=== PATIENT | female | born 1980 | race Caucasian/White ===

== ENCOUNTER → 2016-06-12 | Outpatient (CLI) | payer BC ==
[~2016-06-12] MED LIST: COLA100C PO; IBUP200C PO; IBUP60TA PO; PERCOCET PO
--- NOTE | 2016-06-12 16:26 | REP ---
Obstetric sonography: History: Supervision of for anatomy. Findings: Scanning through the gravid uterus demonstrates a viable single intrauterine gestation in a variable lie. motion is observed and heart rate is recorded at 153 beats per minute. A posterior placenta is seen grade zero without evidence of previa. Amniotic fluid is subjectively normal. Closed cervical length is 4.1 cm. No extrauterine abnormality observed. No anomaly is seen grade the following anatomic structures are identified and felt to be unremarkable: cranium, choroid plexus, cavum, cerebellum posterior fossa, face and profile, lungs, four-chamber heart with left and right ventricular outflow tract views, diaphragm, left-sided stomach, abdominal wall cord insertion, three-vessel umbilical cord, kidneys and bladder, spine, upper and lower extremities. BPD 5.0 cm = 21 weeks 0 days Head circumference 18.3 cm = 20 weeks 5 days Abdominal circumference 16.3 cm = 21 weeks 2 days Femur length 3.5 cm = 21 weeks 0 days Humeral length 3.4 cm = 21 weeks 3 days Cerebellar diameter 2.0 cm = 19 weeks 4 days HC/AC ratio normal 1.13, cephalic index normal 0.75, estimated weight 401 grams 0 pounds 14 ounces 72nd percentile for 20 weeks 3 days. Impression: Viable single intrauterine gestation at 20 weeks 5 days by today's composite criteria. ALICIA by today's sonography 10/25/2016. No anomaly is seen. Signed by Jose Ríos MD 06/12/2016 04:51 P
== END ==
LOC: M SMT 14:55
PROVIDERS: ATTEND Advanced Practice Midwife
DX: O34.211 Maternal care for low transverse scar from previous cesarean delivery (principal)

== ENCOUNTER → 2016-07-25 | Outpatient (CLI) | payer BC ==
[2016-07-25 17:55] LABS: MEAN CORPUSCULAR HEMOGLOBIN 30.6 pg (27.0-33.0); MEAN CORPUSCULAR HGB CONC 33.9 g/dl (32.0-36.5); MEAN CORPUSCULAR VOLUME 90.3 fl (80.0-96.0); RED CELL DISTRIBUTION WIDTH 13.9 % (11.5-14.5)
== END ==
LOC: M SMT 13:25
PROVIDERS: ATTEND Advanced Practice Midwife
DX: O34.211 Maternal care for low transverse scar from previous cesarean delivery (principal)

== ENCOUNTER → 2016-10-03 | Outpatient (REF) | payer BC ==
[~2016-10-03] MED LIST changes: -COLA100C PO; +COLA100C3 PO; +PRENTAB9 PO
== END ==
LOC: M LAB REF 16:50
PROVIDERS: ATTEND Specialist
DX: Z34.83 Encounter for supervision of other normal pregnancy, third trimester (principal)

== ENCOUNTER 2016-10-20 05:38 | Inpatient (IN) | payer BC ==
[~2016-10-20] VITALS: Ht 157.5 cm; Wt 69.0 kg
[2016-10-20] VITALS (9 sets, daily range): BP systolic 95–126; BP diastolic 51–77
[2016-10-20] MEDS ORDERED: LR 800 ML IV ONE (06:00)
[2016-10-20] MEDS ORDERED: ceFAZolin SOD 1 GM in D5W MINI-BAG PLUS 50 ML IV ONE (06:15)
[2016-10-20] MEDS ORDERED: BICITRA 30ML SOLN UDC PO ONE (06:15)
[2016-10-20] MEDS ORDERED: LR 1,000 ML IV SCH ×2 (06:15→09:15)
[2016-10-20 06:30] LABS: MEAN CORPUSCULAR HEMOGLOBIN 30.1 pg (27.0-33.0); MEAN CORPUSCULAR VOLUME 88.6 fl (80.0-96.0); RED CELL DISTRIBUTION WIDTH 14.6 % (11.5-14.5); WHITE BLOOD COUNT 8.4 K/mm3 (4.0-10.0)
[2016-10-20] MEDS ORDERED: NS 1,000 ML IV SCH (07:20)
[2016-10-20] MEDS ORDERED: METOCLOPRAMIDE INJ 10MG/2ML VIAL (J2765) IV PRN ×2 (07:39→09:15)
[2016-10-20] MEDS ORDERED: ONDANSETRON 4MG/2ML VIAL (J2405) IV PRN ×3 (07:39→09:15)
[2016-10-20] MEDS ORDERED: NALBUPHINE HCL 10 MG/ML AMP (J2300) IV PRN ×2 (07:39→09:15)
[2016-10-20] MEDS ORDERED: NALOXONE INJ 0.4 MG/1 ML VIAL (J2310) IV PRN ×2 (07:39)
[2016-10-20] MEDS ORDERED: KETOROLAC 60 MG/2 ML VIAL (J1885) As Ordered ONE (07:56)
[2016-10-20] MEDS ORDERED: OXYTOCIN INJ 10 UNITS/ML VIAL (J2590) As Ordered ONE (07:56)
[2016-10-20] MEDS ORDERED: ONDANSETRON 4MG/2ML VIAL (J2405) As Ordered ONE (07:56)
[2016-10-20] MEDS ORDERED: PHENYLephrine HCL 500 MCG/5 ML (100MCG/ML) SYRINGE (J2370) As Ordered ONE (07:56)
[2016-10-20] MEDS ORDERED: MORPHINE PRES-FREE INJ 10 MG/10 ML VIAL (J2274) As Ordered ONE (07:56)
[2016-10-20] MEDS ORDERED: ePHEDrine SULFATE 25 MG/5 ML(5MG/ML) SYRINGE As Ordered ONE (07:56)
[2016-10-20] MEDS ORDERED: dexameTHASONE 4 MG/ML 1ML VIAL (J1100) As Ordered ONE (07:56)
[2016-10-20] MEDS: LR 1,000 ML IV SCH ×2 (08:47→16:23)
[2016-10-20] MEDS ORDERED: DOCUSATE SODIUM 100 MG CAP PO PRN (09:00)
[2016-10-20] MEDS ORDERED: PERCOCET 5MG/325MG TAB PO PRN ×2 (09:00)
[2016-10-20] MEDS ORDERED: RHOGAM 300 MCG (1500 IU) INJ (J2790) IM SCH (09:00)
[2016-10-20] MEDS ORDERED: OXYTOCIN DRIP 30 UNITS in APPROPRIATE DILUENT 1 EA IV ONE (09:00)
[2016-10-20] MEDS ORDERED: MEASLES,MUMPS,RUBELLA VACCINE INJ (MMR-II) (90707) SC SCH (09:00)
[2016-10-20] MEDS: PRENATAL VITAMIN TAB PO SCH (09:00)
[2016-10-20] MEDS ORDERED: MEPERIDINE INJ 25 MG/ML VIAL (J2175) IV PRN (09:15)
[2016-10-20] MEDS ORDERED: fentaNYL 100 MCG/2 ML INJECTION (J3010) IV PRN (09:15)
[2016-10-20] MEDS ORDERED: diphenhydrAMINE INJ 50MG/ML VIAL (J1200) IV PRN (09:15)
--- NOTE | 2016-10-20 09:16 | RO ---
DATE OF PROCEDURE: 10/20/2016 PREDELIVERY DIAGNOSIS: 39 weeks, prior section times two. POSTOPERATIVE DIAGNOSIS: 39 weeks, prior section times two. PROCEDURE: Repeat low transverse section. SURGEON: Saroj Guillory MD MEDICAL SUPERVISOR: Fermin Monroe DO ANESTHESIA: Spinal. ESTIMATED BLOOD LOSS: 500 mL. URINE OUTPUT: 200 mL. INTRAVENOUS (IV) FLUIDS: 900 mL lactated Ringer (LR) and 1 unit packed red blood cells. FINDINGS: 7 pound 13 ounce or 3538 gram female , score 9 and 9. DESCRIPTION OF PROCEDURE: The patient was taken to the operating room where spinal anesthesia was induced. She was prepped and draped in sterile fashion in the supine position. A Montemayor catheter was in place. A Pfannenstiel skin incision was made with the scalpel and carried through to the fascia. The fascia was nicked and extended bilaterally. The fascia was dissected off the rectus muscles. The peritoneal cavity was entered. A bladder flap was created. A curvilinear incision was made in the lower uterine segment until clear fluid was noted. This was extended manually. The infant was delivered in the vertex position without difficulty. Shoulders delivered with ease. The infant cried spontaneously. The cord was doubly clamped and cut. The infant was handed to the nurses. The placenta was expressed. The uterus was exteriorized and cleared of clots and debris. Uterine incision was closed with #0 Vicryl in a running locked fashion. A second imbricating layer of #0 Vicryl was placed. The uterus was placed back in the abdomen. The peritoneum was closed with #2-0 Vicryl in a running fashion. The fascia was closed with #0 Vicryl in a running fashion. The deep layer was irrigated and closed with #3-0 chromic. The skin was closed with #4-0 Monocryl subcuticular sutures. Sponge, instrument and needle counts were correct.
[2016-10-20] MEDS: KETOROLAC 30 MG/ML VIAL (J1885) IV SCH ×2 (13:41→20:24)
[2016-10-21] MEDS: LR 1,000 ML IV SCH (00:47)
[2016-10-21] MEDS: KETOROLAC 30 MG/ML VIAL (J1885) IV SCH ×2 (02:01→07:51)
[2016-10-21 02:28] VITALS: BP 93/48
[2016-10-21 06:20] VITALS: BP 93/54
[2016-10-21 06:54] LABS: MEAN CORPUSCULAR HEMOGLOBIN 29.5 pg (27.0-33.0); MEAN CORPUSCULAR HGB CONC 33.5 g/dl (32.0-36.5); MEAN CORPUSCULAR VOLUME 87.8 fl (80.0-96.0); RED CELL DISTRIBUTION WIDTH 14.9 % (11.5-14.5); WHITE BLOOD COUNT 8.4 K/mm3 (4.0-10.0)
[2016-10-21] MEDS: PRENATAL VITAMIN TAB PO SCH (07:51)
[2016-10-21] MEDS ORDERED: OXYC1TAB23 PO (09:38)
[2016-10-21 10:00] VITALS: BP 106/51
[2016-10-21 14:00] VITALS: BP 125/68
[2016-10-21] MEDS: IBUPROFEN 800 MG TAB PO SCH ×2 (15:58→23:50)
[2016-10-21 17:34] VITALS: BP 116/63
[2016-10-21 22:25] VITALS: BP 124/56
[2016-10-22 06:15] VITALS: BP 129/71
[2016-10-22] MEDS: PRENATAL VITAMIN TAB PO SCH (08:25)
[2016-10-22] MEDS: IBUPROFEN 800 MG TAB PO SCH (08:26)
[2016-10-22] MEDS ORDERED: IBUP-1114 PO (09:02)
[2016-10-22] MEDS ORDERED: OXYC1TAB23 PO (09:02)
== END 2016-10-22 13:20 | disposition home or self-care (01) | DRG 540 ==
LOC: M LDI 05:38 → M OBS 10:21
PROVIDERS: ADMIT Specialist; ATTEND Specialist
PROC: 10D00Z1 Extraction of Products of Conception, Low, Open Approach (ICD-10-PCS; principal; 2016-10-20 07:30)
DX: O34.211 Maternal care for low transverse scar from previous cesarean delivery (principal); Z37.0 Single live birth; Z3A.39 39 weeks gestation of pregnancy

== ENCOUNTER → 2018-01-14 | Outpatient (CLI) | payer BC | LOC: M RAD 14:34 | DX: Z36.89 Encounter for other specified antenatal screening (principal); Z3A.21 21 weeks gestation of pregnancy | CPT/HCPCS: 76811 ==

== ENCOUNTER → 2018-02-12 | Outpatient (CLI) | payer BC ==
[2018-02-12 19:24] LABS: BASO % 0.2 % (0.0-1.0); EOS # 0.1 10^3/uL (0.0-0.50); EOS % 0.9 % (0.0-3.0); HEMOGLOBIN 10.6 g/dl (12.0-15.5); IMMATURE GRANULOCYTE % 0.6 % (0-3.0); LYMPH # 1.6 10^3/uL (1.5-4.5); LYMPH % 14.9 % (24.0-44.0); MEAN CORPUSCULAR HEMOGLOBIN 31.4 pg (27.0-33.0); MEAN CORPUSCULAR HGB CONC 33.1 g/dl (32.0-36.5); MEAN CORPUSCULAR VOLUME 94.7 fl (80.0-96.0); MONO # 0.6 10^3/uL (0.0-0.8); MONO % 5.3 % (0.0-5.0); NEUTROPHILS # 8.1 10^3/uL (1.8-7.7); NEUTROPHILS % 78.1 % (36.0-66.0); PLATELET COUNT, AUTOMATED 141 10^3/uL (150-450); RED BLOOD COUNT 3.38 10^6/uL (4.00-5.40); RED CELL DISTRIBUTION WIDTH 14.2 % (11.5-14.5); WHITE BLOOD COUNT 10.4 10^3/uL (4.0-10.0)
[2018-02-12 19:41] LABS: GLUCOSE CHALLENGE TEST 1 HOUR 115 MG/DL (LESS THAN 140)
== END ==
LOC: M SMT 13:24
DX: Z34.82 Encounter for supervision of other normal pregnancy, second trimester (principal); Z36.89 Encounter for other specified antenatal screening
CPT/HCPCS: 82950

== ENCOUNTER → 2018-02-12 | Outpatient (CLI) | payer BC | LOC: M RAD 12:36 | DX: Z36.9 Encounter for antenatal screening, unspecified (principal); Z3A.27 27 weeks gestation of pregnancy | CPT/HCPCS: 76816 ==

== ENCOUNTER → 2018-04-20 | Outpatient (REF) | payer BC | LOC: M LAB REF 17:26 | DX: Z36.89 Encounter for other specified antenatal screening (principal) | CPT/HCPCS: 87081 ==

== ENCOUNTER 2018-05-13 06:36 | Inpatient (IN) | payer BC ==
[2018-05-13] MEDS: LR 1,000 ML IV ×4 (07:24→23:50)
[2018-05-13 07:34] LABS: HEMATOCRIT 30.9 % (36.0-47.0); HEMOGLOBIN 10.2 g/dl (12.0-15.5); MEAN CORPUSCULAR HEMOGLOBIN 28.9 pg (27.0-33.0); MEAN CORPUSCULAR VOLUME 87.5 fl (80.0-96.0); PLATELET COUNT, AUTOMATED 134 10^3/uL (150-450); RED BLOOD COUNT 3.53 10^6/uL (4.00-5.40); RED CELL DISTRIBUTION WIDTH 15.3 % (11.5-14.5); WHITE BLOOD COUNT 8.2 10^3/uL (4.0-10.0)
[2018-05-13] MEDS ORDERED: ONDANSETRON 4MG/2ML VIAL (J2405) IV ×3 (07:39→11:15)
[2018-05-13] MEDS ORDERED: NALOXONE INJ 0.4 MG/1 ML VIAL (J2310) IV ×2 (07:39)
[2018-05-13] MEDS ORDERED: METOCLOPRAMIDE INJ 10MG/2ML VIAL (J2765) IV (07:39)
[2018-05-13] MEDS ORDERED: NALBUPHINE HCL 10 MG/ML AMP (J2300) IV (07:39)
[2018-05-13] MEDS: BICITRA 30ML SOLN UDC PO (09:29)
[2018-05-13] MEDS ORDERED: MORPHINE PRES-FREE INJ 10 MG/10 ML VIAL (J2274) As Ordered (09:35)
[2018-05-13] MEDS ORDERED: ePHEDrine SULFATE 25 MG/5 ML(5MG/ML) SYRINGE As Ordered (10:07)
[2018-05-13] MEDS ORDERED: PROMETHAZINE 25 MG TAB PO (10:45)
[2018-05-13] MEDS ORDERED: PERCOCET 5MG/325MG TAB PO ×2 (10:45)
[2018-05-13] MEDS ORDERED: RHOGAM 300 MCG (1500 IU) INJ (J2790) IM (10:45)
[2018-05-13] MEDS ORDERED: MEASLES,MUMPS,RUBELLA VACCINE INJ (MMR-II) (90707) SC (10:45)
[2018-05-13] MEDS ORDERED: OXYTOCIN INJ 10 UNITS/ML VIAL (J2590) As Ordered (11:00)
[2018-05-13] MEDS ORDERED: ONDANSETRON 4MG/2ML VIAL (J2405) As Ordered (11:00)
[2018-05-13] MEDS ORDERED: KETOROLAC 60 MG/2 ML VIAL (J1885) As Ordered (11:00)
[2018-05-13] MEDS ORDERED: OXYTOCIN 30 UNITS IN 0.9% NaCl 500ML IV BAG (J2590) As Ordered (11:10)
[2018-05-13] MEDS: OXYTOCIN DRIP 30 UNITS in APPROPRIATE DILUENT 1 EA IV (11:12)
[2018-05-13] MEDS ORDERED: fentaNYL 100 MCG/2 ML INJECTION (J3010) IV (11:15)
[2018-05-13] MEDS ORDERED: BUPIVACAINE/DEXTROSE 0.75% 2 ML AMP As Ordered (12:32)
[2018-05-13] MEDS: KETOROLAC 30 MG/ML VIAL (J1885) IV ×2 (15:56→21:35)
[2018-05-13] MEDS: DOCUSATE SODIUM 100 MG CAP PO (21:35)
[2018-05-14] MEDS: LR 1,000 ML IV (02:45)
[2018-05-14] MEDS: KETOROLAC 30 MG/ML VIAL (J1885) IV (04:34)
[2018-05-14 06:55] LABS: HEMATOCRIT 26.5 % (36.0-47.0); HEMOGLOBIN 8.7 g/dl (12.0-15.5); MEAN CORPUSCULAR HEMOGLOBIN 29.4 pg (27.0-33.0); MEAN CORPUSCULAR HGB CONC 32.8 g/dl (32.0-36.5); MEAN CORPUSCULAR VOLUME 89.5 fl (80.0-96.0); PLATELET COUNT, AUTOMATED 125 10^3/uL (150-450); RED BLOOD COUNT 2.96 10^6/uL (4.00-5.40); RED CELL DISTRIBUTION WIDTH 15.6 % (11.5-14.5); WHITE BLOOD COUNT 11.5 10^3/uL (4.0-10.0)
[2018-05-14] MEDS: DOCUSATE SODIUM 100 MG CAP PO ×2 (08:29→20:38)
[2018-05-14] MEDS: PRENATAL VITAMINS CHEWABLE TABLET PO (08:29)
[2018-05-14] MEDS: IBUPROFEN 800 MG TAB PO ×2 (12:46→20:38)
[2018-05-15] MEDS: IBUPROFEN 800 MG TAB PO (04:31)
[2018-05-15] MEDS: DOCUSATE SODIUM 100 MG CAP PO (10:20)
[2018-05-15] MEDS: PRENATAL VITAMINS CHEWABLE TABLET PO (10:20)
== END 2018-05-15 11:25 | disposition home or self-care (01) | DRG 540 ==
LOC: M LDI 06:36 → M OBS 12:25
PROVIDERS: Obstetrics & Gynecology
PROC: 10D00Z1 Extraction of Products of Conception, Low, Open Approach (ICD-10-PCS; principal; 2018-05-13 08:30)
DX: O34.211 Maternal care for low transverse scar from previous cesarean delivery (principal); O09.523 Supervision of elderly multigravida, third trimester; Z37.0 Single live birth

== ENCOUNTER → 2019-02-21 | Outpatient (REF) | payer BC ==
[~2019-02-21] MED LIST changes: -COLA100C3 PO; +COLA100C5 PO; +IBUP-1114 PO; +IBUP1TAB7 PO; -IBUP200C PO; +IBUP200C25 PO; +IBUP600T42 PO; -IBUP60TA PO; +OXYC1TAB23 PO
[2019-02-23 14:19] LABS: HPV HYBRID CAPTURE II Negative (Negative)
== END ==
LOC: M LAB REF 18:40
PROVIDERS: ATTEND Obstetrics & Gynecology
DX: Z12.4 Encounter for screening for malignant neoplasm of cervix (principal)
CPT/HCPCS: 87624; G0123

== ENCOUNTER → 2021-04-09 | Outpatient (REF) | payer BC | LOC: M SFHCWAGY 17:20 | PROVIDERS: ATTEND Obstetrics & Gynecology | DX: Z12.4 Encounter for screening for malignant neoplasm of cervix (principal) | CPT/HCPCS: 87624; G0123 ==

== ENCOUNTER → 2022-05-09 | Outpatient (CLI) | payer BC, OTHER | LOC: M WHC 09:20 | PROVIDERS: ATTEND Obstetrics & Gynecology | DX: Z12.31 Encounter for screening mammogram for malignant neoplasm of breast (principal) ==

== ENCOUNTER → 2022-05-09 | Outpatient (REF) | payer OTHER | LOC: M PLALAB 15:43 | PROVIDERS: ATTEND Obstetrics & Gynecology | DX: Z12.4 Encounter for screening for malignant neoplasm of cervix (principal) | CPT/HCPCS: 87624; G0123 ==

== ENCOUNTER → 2022-05-13 | Outpatient (CLI) | payer OTHER ==
[2022-05-13 15:56] LABS: HEMATOCRIT 33.3 % (36.0-47.0); HEMOGLOBIN 9.7 g/dl (12.0-15.5); MEAN CORPUSCULAR HEMOGLOBIN 22.2 pg (27.0-33.0); MEAN CORPUSCULAR HGB CONC 29.1 g/dl (32.0-36.5); MEAN CORPUSCULAR VOLUME 76.2 fl (80.0-96.0); PLATELET COUNT, AUTOMATED 234 10^3/uL (150-450); RED BLOOD COUNT 4.37 10^6/uL (4.00-5.40); WHITE BLOOD COUNT 8.5 10^3/uL (4.0-10.0)
[2022-05-13 16:23] LABS: FREE T4 0.95 NG/DL (0.89-1.76); THYROID STIMULATING HORMONE 0.964 uIU/ML (0.55-4.78)
[2022-05-13 16:24] LABS: PROLACTIN 7.23 NG/ML
== END ==
LOC: M PLALAB 13:14
PROVIDERS: ATTEND Obstetrics & Gynecology
DX: Z12.4 Encounter for screening for malignant neoplasm of cervix (principal); N93.9 Abnormal uterine and vaginal bleeding, unspecified

== ENCOUNTER → 2022-05-13 | Outpatient (CLI) | payer OTHER | LOC: M WHC 11:09 | PROVIDERS: ATTEND Obstetrics & Gynecology | DX: N93.9 Abnormal uterine and vaginal bleeding, unspecified (principal) | CPT/HCPCS: 76830; 76856; 77066; G0279 ==

== ENCOUNTER → 2023-02-09 | Outpatient (REF) | payer BC | LOC: M SFHCWAGY 18:18 | PROVIDERS: ATTEND Obstetrics & Gynecology | DX: N93.9 Abnormal uterine and vaginal bleeding, unspecified (principal) ==

== ENCOUNTER 2023-02-18 06:30 | Day surgery (SDC) | payer BC ==
[~2023-02-18] VITALS: Ht 157.5 cm; Wt 57.8 kg
[~2023-02-18 06:30] MED LIST changes: +ceFAZolin SOD 2 GM in IV 1 EA IV ONE
[2023-02-18] MEDS ORDERED: LR 1,000 ML IV SCH ×2 (07:05→09:25)
[2023-02-18 07:19] LABS: HEMATOCRIT 32.8 % (36.0-47.0); HEMOGLOBIN 10.1 g/dl (12.0-15.5); MEAN CORPUSCULAR HEMOGLOBIN 24.2 pg (27.0-33.0); MEAN CORPUSCULAR HGB CONC 30.8 g/dl (32.0-36.5); MEAN CORPUSCULAR VOLUME 78.7 fl (80.0-96.0); PLATELET COUNT, AUTOMATED 209 10^3/uL (150-450); RED BLOOD COUNT 4.17 10^6/uL (4.00-5.40); WHITE BLOOD COUNT 4.7 10^3/uL (4.0-10.0)
[2023-02-18] MEDS ORDERED: METOCLOPRAMIDE INJ 10MG/2ML VIAL As Ordered ONE (08:09)
[2023-02-18] MEDS ORDERED: KETOROLAC 60MG 2ML VIAL As Ordered ONE (08:09)
[2023-02-18] MEDS ORDERED: MIDAZOLAM INJ 2MG/2ML VIAL As Ordered ONE (08:09)
[2023-02-18] MEDS ORDERED: LIDOCAINE 2% 100MG/5ML SDV (FOR ANES.) As Ordered ONE (08:09)
[2023-02-18] MEDS ORDERED: HYDROmorphone HCL 2MG/ML 1ML VIAL As Ordered ONE (08:09)
[2023-02-18] MEDS ORDERED: propofoL 200 MG/20 ML VIAL As Ordered ONE (08:09)
[2023-02-18] MEDS ORDERED: ACETAMINOPHEN 1000MG 100ML IV BAG As Ordered ONE (08:09)
[2023-02-18] MEDS ORDERED: ROCURONIUM BROMIDE 50MG/5ML VIAL As Ordered ONE (08:09)
[2023-02-18] MEDS ORDERED: fentaNYL 100 MCG/2 ML INJECTION As Ordered ONE (08:09)
[2023-02-18] MEDS ORDERED: ONDANSETRON 4MG 2ML VIAL As Ordered ONE (08:09)
[2023-02-18] MEDS ORDERED: SUGAMMADEX SODIUM 500 MG/5 ML VIAL (BRIDION) As Ordered ONE (08:09)
[2023-02-18] MEDS ORDERED: ONDANSETRON 4MG 2ML VIAL IV PRN (09:25)
[2023-02-18] MEDS ORDERED: fentaNYL 100 MCG/2 ML INJECTION IV PRN (09:25)
[2023-02-18] MEDS ORDERED: HYDROMORPHONE HCL 0.5 MG/ 0.5 ML SYRINGE IV PRN (09:25)
[2023-02-18] MEDS ORDERED: oxyCODONE 5MG TAB PO PRN (09:25)
[2023-02-18] MEDS ORDERED: PERCOCET 5MG/325MG TAB PO PRN (10:05)
[2023-02-18 10:40] VITALS: BP 125/76; TEMP 97.6; O2SAT 97
[2023-02-18] MEDS ORDERED: KETOROLAC 30 MG/ML 1ML VIAL IV SCH (15:00)
== END 2023-02-18 11:05 | disposition home or self-care (01) ==
LOC: M SDC 06:30
PROVIDERS: ATTEND Obstetrics & Gynecology
DX: N93.9 Abnormal uterine and vaginal bleeding, unspecified (principal)
CPT/HCPCS: 36415; 58571; 81025; 85027; 86850; 86900; 86901; 88307; J0131; J0665; J0690; J1100; J1170; J1885; J2250; J2405; J2765; J3010; S2900

== ENCOUNTER → 2023-05-12 | Outpatient (CLI) | payer BC, OTHER ==
[~2023-05-12] MED LIST changes: -ceFAZolin SOD 2 GM in IV 1 EA IV ONE
== END ==
LOC: M WHC 13:30
PROVIDERS: ATTEND Obstetrics & Gynecology
DX: Z12.31 Encounter for screening mammogram for malignant neoplasm of breast (principal)

== ENCOUNTER → 2024-06-06 | Outpatient (CLI) | payer BC, SELFPAY | LOC: M WHC 08:06 | PROVIDERS: ATTEND Obstetrics & Gynecology | DX: Z12.31 Encounter for screening mammogram for malignant neoplasm of breast (principal) ==